=== PATIENT | female | born 1935 | race Caucasian/White ===

== ENCOUNTER 2019-10-19 13:47 | Emergency (ER) | payer MEDICARE ==
--- NOTE | 2019-10-19 15:06 | EDM.PDOC ---
ED HPI GENERAL MEDICAL PROBLEM - General Chief Complaint: Genitourinary Problem Stated Complaint: CATHETER PLACEMENT Time Seen by Provider: 10/19/19 14:05 - History of Present Illness INITIAL COMMENTS - FREE TEXT/NARRATIVE: History of present illness: Patient presents from her primary care office for urinary retention they did a bladder scan at the office and had 850 mils in her bladder she states she can only dribble she denies any masses bulging or any prolapse of her bladder or rectum she denies having trouble with constipation she denies any dysuria urgency or fever chills. She is not had this type of trouble before she is not on any new medications and does not apparently take any anticholinergics. The makes it better or worse this is been going on for a couple weeks Review of systems: As per history of present illness and below otherwise all systems reviewed and negative. Past medical history: As per history of present illness and as reviewed below otherwise noncontributory. Surgical history: As per history of present illness and as reviewed below otherwise noncontributory. Social history: No reported history of drug or alcohol abuse. Family history: As per history of present illness and as reviewed below otherwise noncontributory. Physical exam: HEENT: Atraumatic, normocephalic, pupils reactive, negative for conjunctival pallor or scleral icterus, mucous membranes moist, throat clear, neck supple, nontender, trachea midline. Lungs: Clear to auscultation, breath sounds equal bilaterally, chest nontender. Heart: S1S2, regular, negative for clicks, rubs, or JVD. Abdomen: Soft, nondistended, nontender. Negative for masses or hepatosplenomegaly. Negative for costovertebral tenderness. Pelvis: Stable nontender. Genitourinary: Deferred. Rectal: Deferred. Extremities: Atraumatic, negative for cords or calf pain. Neurovascular unremarkable. Neuro: Awake, alert, oriented. Cranial nerves II through XII unremarkable. Cerebellum unremarkable. Motor and sensory unremarkable throughout. Exam nonfocal. Diagnostics: [] Therapeutics: [] Impression: [] Plan: We will place a Rehman check a urine and reassess. She will be referred to urology [] Definitive disposition and diagnosis as appropriate pending reevaluation and review of above. - Related Data Allergies Allergy/AdvReac Type Severity Reaction Status Date / Time No Known Allergies Allergy Verified 10/19/19 14:03 Past Medical History - Infectious Disease History Infectious Disease History: Reports: None Social & Family History - Family History Family Medical History: Noncontributory - Tobacco Use Smoking Status *Q: Former Smoker Used Tobacco, but Quit: Yes Month/Year Tobacco Last Used: 2 years - Caffeine Use Caffeine Use: Reports: None - Recreational Drug Use Recreational Drug Use: No ED ROS GENERAL - Review of Systems Review Of Systems: See Below ED EXAM, GENERAL - Physical Exam Exam: See Below Course - Vital Signs Text/Narrative:: A Rehman is placed she is feeling better will discharge her home there is no evidence of infection in her urine I will refer her to urology Last Recorded V/S: Last Vital Signs Temp 36.4 C 10/19/19 14:03 Pulse 71 10/19/19 14:03 Resp 18 10/19/19 14:03 BP 172/80 H 10/19/19 14:03 Pulse Ox 94 L 10/19/19 14:03 - Orders/Labs/Meds Orders: Active Orders 24 hr Category Date Time Status Rehman Catheter Insertion [Insert Urinary Catheter] [OM. Care 10/19/19 14:15 Ordered PC] Q24H Urinary Catheter Assessment [RC] ASDIRECTED Care 10/19/19 14:06 Active Labs: Laboratory Tests 10/19/19 Range/Units 14:30 Urine Color YELLOW Urine Appearance CLEAR Urine pH 7.0 (5.0-8.0) Ur Specific [place] 1.010 (1.001-1.035) Urine Protein NEGATIVE (NEGATIVE) mg/dL Urine Glucose (UA) NEGATIVE (NEGATIVE) mg/dL Urine Ketones NEGATIVE (NEGATIVE) mg/dL Urine Occult Blood NEGATIVE (NEGATIVE) Urine Nitrite NEGATIVE (NEGATIVE) Urine Bilirubin NEGATIVE (NEGATIVE) Urine Urobilinogen 0.2 (<2.0) EU/dL Ur Leukocyte Esterase NEGATIVE (NEGATIVE) Departure - Departure Time of Disposition: 15:05 Disposition: Admitted As Inpatient 68 Condition: Good Clinical Impression: Urinary retention - Discharge Information *PRESCRIPTION DRUG MONITORING PROGRAM REVIEWED*: Not Applicable *COPY OF PRESCRIPTION DRUG MONITORING REPORT IN PATIENT VANDANA: Not Applicable Instructions: Acute Urinary Retention, Female, [id number] Referrals: Nelson Schulz MD [Primary Care Provider] - Additional Instructions: The following information is given to patients seen in the emergency department who are being discharged to home. This information is to outline your options for follow-up care. We provide all patients seen in our emergency department with a follow-up referral. The need for follow-up, as well as the timing and circumstances, are variable depending upon the specifics of your emergency department visit. If you don't have a primary care physician on staff, we will provide you with a referral. We always advise you to contact your personal physician following an emergency department visit to inform them of the circumstance of the visit and for follow-up with them and/or the need for any referrals to a consulting specialist. The emergency department will also refer you to a specialist when appropriate. This referral assures that you have the opportunity for follow-up care with a sp ecialist. All of these measure are taken in an effort to provide you with optimal care, which includes your follow-up. Under all circumstances we always encourage you to contact your private physicia n who remains a resource for coordinating your care. When calling for follow-up care, please make the office aware that this follow-up is from your recent emergency room visit. If for any reason you are refused follow-up, please contact the [facility] Emergency Department at and asked to speak to the emergency department charge nurse. [facility] - Urology [address] [place] [id number] Sepsis Event Note (ED) - Evaluation Sepsis Screening Result: No Definite Risk - Focused Exam Vital Signs: Vital Signs Temp Pulse Resp BP Pulse Ox 10/19/19 14:03 36.4 C 71 18 172/80 H 94 L - My Orders Last 24 Hours: My Active Orders 10/19/19 14:06 Urinary Catheter Assessment [RC] ASDIRECTED 10/19/19 14:15 Rehman Catheter Insertion [Insert Urinary Catheter] [OM.PC] Q24H - Assessment/Plan Last 24 Hours: My Active Orders 10/19/19 14:06 Urinary Catheter Assessment [RC] ASDIRECTED 10/19/19 14:15 Rehman Catheter Insertion [Insert Urinary Catheter] [OM.PC] Q24H
== END 2019-10-19 15:37 | disposition critical access hospital (66) ==
LOC: EDBD 13:47 → MW.ED 13:47
DX: R33.9 Retention of urine, unspecified (principal); Z87.891 Personal history of nicotine dependence
CPT/HCPCS: 51702; 81003; 99283